=== PATIENT | female | born 1985 | race Caucasian/White ===

== ENCOUNTER 2018-03-18 06:47 | Day surgery (SDC) | payer MEDICAID ==
[2018-03-17 16:05] LABS: BASOPHILS % (AUTO) 0.2 % (0.0-5.0); EOSINOPHILS % (AUTO) 2.5 % (0.0-8.0); HEMATOCRIT 42.6 % (36-48); LYMPHOCYTES % (AUTO) 23.5 % (21.0-51.0); MEAN CORPUSCULAR HEMOGLOBIN 30.2 pg (27.0-33.0); MEAN CORPUSCULAR VOLUME 88.7 fL (79-99); MONOCYTES % (AUTO) 3.7 % (3.0-13.0); NEUTROPHILS % (AUTO) 70.1 % (40.0-77.0); PLATELET COUNT (AUTO) 304 K/uL (130-400); RED CELL DISTRIBUTION WIDTH 12.3 % (11.0-15.5); WHITE BLOOD COUNT (AUTO) 14.2 K/uL (4.8-10.8)
[2018-03-17 16:09] VITALS: BP 125/73
[2018-03-18] VITALS (13 sets, daily range): BP systolic 100–127; BP diastolic 56–75
[~2018-03-18] VITALS: Ht 170.2 cm; Wt 95.1 kg
[~2018-03-18 06:47] MED LIST: ACET325C5 PO; ALBU8.5H8 IH; FLUT1BLS3 IH; IBUP-2071 PO; LACTATED RINGERS 1000ML 1,000 ML IV SCH; PIND10TA2 PO
[2018-03-18] MEDS ORDERED: PROPOFOL 10 MG/ML 20ML VIAL IV ONE ×2 (07:43→09:35)
[2018-03-18] MEDS ORDERED: LIDOCAINE PF 2% 5ML ABBOJECT ONE ×2 (07:43→07:44)
[2018-03-18] MEDS ORDERED: ROCURONIUM 10MG/1ML SYR 10 MG/ML ML ONE (07:43)
[2018-03-18] MEDS ORDERED: FENTANYL CITRATE PF 50 MCG/1 ML 2ML VIAL ONE ×2 (07:43→08:49)
[2018-03-18] MEDS ORDERED: MIDAZOLAM HCL 1 MG/ML 2ML VIAL ONE (07:43)
[2018-03-18] MEDS ORDERED: BUPIVACAINE/PF 0.5% 30ML VIAL ONE (07:57)
[2018-03-18] MEDS ORDERED: CALDOLOR 800MG+NS 250ML 250 ML IV PRN (08:00)
[2018-03-18] MEDS: CEFAZOLIN SODIUM 1 GM VIAL ONE ×2 (08:13→08:50)
[2018-03-18] MEDS ORDERED: GLYCOPYRROLATE 1 MG/5 ML SYRINGE ONE (09:27)
[2018-03-18] MEDS ORDERED: NEOSTIGMINE 5MG/5ML SYR IV ONE (09:27)
[2018-03-18] MEDS ORDERED: LIDOCAINE HCL 2% JELLY 5 ML TP ONE (09:30)
[2018-03-18] MEDS ORDERED: MEPERIDINE-PF 25 MG/ML SYG ONE (09:40)
== END 2018-03-18 11:30 | disposition home or self-care (01) ==
LOC: DAH 06:47
DX: Z30.2 Encounter for sterilization (principal); J44.9 Chronic obstructive pulmonary disease, unspecified; Z87.891 Personal history of nicotine dependence; Z98.890 Other specified postprocedural states; Z79.899 Other long term (current) drug therapy; K21.9 Gastro-esophageal reflux disease without esophagitis
CPT/HCPCS: 36415; 58670; 84702; 85025; 96365; A4215; A4218; A4351; A4510; A4600; C1769 ×2; G0168; J0690; J1741; J2001 ×2; J2175; J2250; J2704 ×2; J2710; J3010 ×2; J3490 ×2; J7040; J7120